=== PATIENT | male | born 1990 | race African-American/Black ===

== ENCOUNTER 2017-03-31 08:08 | Day surgery (SDC) | payer BC ==
[~2017-03-31 08:08] MED LIST: Bupivacaine 0.5% 30 ML SDV ONE
[2017-03-31] MEDS ORDERED: Propofol 200 MG/20 ML SDV ONE (08:18)
[2017-03-31] MEDS ORDERED: Lidocaine 2% 5 ML SDV ONE (08:18)
[2017-03-31] MEDS ORDERED: fentaNYL 250 MCG/5 ML SDV ONE (08:19)
[2017-03-31] MEDS ORDERED: Midazolam 1 MG/ML 2 ML SDV ONE (08:19)
[2017-03-31] MEDS ORDERED: Rocuronium 10 MG/ML 10 ML Syringe ONE (08:23)
[2017-03-31] MEDS ORDERED: Ondansetron 4 MG/2 ML SDV ONE (08:23)
[2017-03-31] MEDS ORDERED: Neostigmine Methylsulfate 1 MG/ML 5 ML Syringe ONE (08:23)
--- NOTE | 2017-03-31 08:35 | PCM.PREANE ---
Preanesthetic Assessment - Anesthesia/Transfusion/Family Hx Anesthesia History: No Prior Anesthesia Family History of Anesthesia Reaction: No Transfusion History: No Prior Transfusion(s) - Review of Systems General: No Symptoms Pulmonary: No Symptoms Cardiovascular: No Symptoms Gastrointestinal: No symptoms Neurological: No Symptoms Other: Reports: None - Physical Assessment NPO Status Date: 03/30/17 Height: 1.65 m Weight: 68.039 kg ASA Class: 1 Mental Status: Alert & Oriented x3 Airway Class: Mallampati = 1 Dentition: Reports: Normal Dentition ROM/Head Extension: Full Lungs: Clear to auscultation, Normal respiratory effort Cardiovascular: Regular Rate, Regular Rhythm - Allergies Allergies/Adverse Reactions: Allergies Allergy/AdvReac Type Severity Reaction Status Date / Time No Known Allergies Allergy Verified 10/30/15 11:36 - Anesthesia Plan Pre-Op Medication Ordered: None - Acknowledgements Anesthesia Type Planned: General Anesthesia (ETT if prone) Pt an Appropriate Candidate for the Planned Anesthesia: Yes Alternatives and Risks of Anesthesia Discussed w Pt/Guardian: Yes Pt/Guardian Understands and Agrees with Anesthesia Plan: Yes PreAnesthesia Questionnaire - Past Health History Medical/Surgical History: Denies Medical/Surgical History - Past Surgical History Head Surgeries/Procedures: Reports: None - SUBSTANCE USE Smoking Status *Q: Never Smoker Recreational Drug Use History: No - HOME MEDS Home Medications: Home Meds . [No Known Home Meds] 10/30/15 [History] - CURRENT (IN HOUSE) MEDS Current Meds: Current Medications Lactated Ringer's (Ringers, Lactated) 1,000 mls @ 125 mls/hr IV ASDIRECTED BREE Discontinued Medications Bupivacaine HCl (Marcaine 0.5%) Confirm Administered Dose 60 ml .ROUTE .STK-MED ONE Stop: 03/31/17 07:18 Fentanyl (Sublimaze) Confirm Administered Dose 250 mcg .ROUTE .STK-MED ONE Stop: 03/31/17 08:20 Glycopyrrolate () Confirm Administered Dose 1 mg .ROUTE .STK-MED ONE Stop: 03/31/17 08:24 Lidocaine (Xylocaine-Mpf 2%) Confirm Administered Dose 10 ml .ROUTE .STK-MED ONE Stop: 03/31/17 08:19 Midazolam HCl (Versed 1 Mg/Ml) Confirm Administered Dose 2 mg .ROUTE .STK-MED ONE Stop: 03/31/17 08:20 Neostigmine Methylsulfate (Neostigmine) Confirm Administered Dose 5 mg .ROUTE .STK-MED ONE Stop: 03/31/17 08:24 Ondansetron HCl (Zofran) Confirm Administered Dose 4 mg .ROUTE .STK-MED ONE Stop: 03/31/17 08:24 Propofol (Diprivan 20 Ml) Confirm Administered Dose 400 mg .ROUTE .STK-MED ONE Stop: 03/31/17 08:19 Rocuronium [place] (Zemuron) Confirm Administered Dose 100 mg .ROUTE .STK-MED ONE Stop: 03/31/17 08:24
[2017-03-31] MEDS ORDERED: Lactated Ringers 1,000 ML IV SCH ×3 (09:00→23:00)
[2017-03-31] MEDS ORDERED: Lidocaine 1% 20 ML MDV ONE (09:07)
[2017-03-31] MEDS ORDERED: Morphine 10 MG/ML Syringe IVPUSH PRN (10:12)
[2017-03-31] MEDS ORDERED: Acetaminophen/HYDROcodone 325-5 MG Tab PO PRN (10:12)
--- NOTE | 2017-03-31 10:14 | PCM.OPNOTE ---
- General Post-Op/Procedure Note Date of Surgery/Procedure: 03/31/17 Operative Procedure(s): Excision 5 cm x 10 cm mid back mass Pre Op Diagnosis: Enlarging back mass Post-Op Diagnosis: Same Anesthesia Technique: General ET tube (ASA I) Primary Surgeon: Ever Olivo Fluid Replacement, Intraop: 800 EBL in mLs: 5 Condition: Good Free Text/Narrative:: Dictation [id number]
[2017-03-31] MEDS ORDERED: fentaNYL 100 MCG/2 ML SDV IVPUSH PRN (10:29)
--- NOTE | 2017-03-31 11:17 | PCM.POSTAN ---
POST ANESTHESIA ASSESSMENT - MENTAL STATUS Mental Status: alert, oriented - RESPIRATORY Respiratory Status: respiratory rate WNL, airway patent, O2 saturation stable - CARDIOVASCULAR CV Status: pulse rate WNL, blood pressure stable - GASTROINTESTINAL GI Status: no symptoms - PAIN Pain Score: 0 - POST OP HYDRATION Hydration Status: adequate & stable
--- NOTE | 2017-03-31 11:33 | OR ---
SURGEON: Ever Olivo M.D. DATE OF PROCEDURE: 03/31/2017 OPERATION PERFORMED: Excision of 5 x 10 cm mid back mass. ANESTHESIA: General endotracheal. ASA CLASSIFICATION: I. PREOPERATIVE DIAGNOSIS: Symptomatic enlarging mid back mass. POSTOPERATIVE DIAGNOSIS: Symptomatic enlarging mid back mass. ESTIMATED BLOOD LOSS: 5 mL. FLUID REPLACEMENT: 800 mL of crystalloid. DESCRIPTION OF PROCEDURE: The patient was taken to the operating room, kept on the transfer cart in the supine position. Time-out was called for appropriate identification of the patient and procedure. Surgical site had been marked prior to the patient entering the operating room. Following induction of general endotracheal anesthesia, the patient was positioned on the operating table in the prone position. Care was taken to pad all bony prominences. The skin was then prepped with DuraPrep solution. Sterile drapes were applied. Field block anesthesia was accomplished with 10 mL of 0.5% Marcaine solution. The skin incision was made directly over the mass and deepened through the subcutaneous tissue obtaining hemostasis with the use of electrocautery. Using electrocautery, the mass was dissected away from the surrounding tissues. This did extend down to the prevertebral fascia. Once the mass was removed, bleeding sites were electrocoagulated. The incision was closed in 2 layers approximating the subcutaneous tissue with 3-0 Polysorb and the skin with subcuticular 4-0 Monocryl. Steri-Strips were placed on the skin and the incision was then dressed with a sterile Tegaderm pad. Sponge, needle, and instrument counts were all correct. The patient tolerated the procedure well. He was repositioned on the transfer cart to the supine position and following emergence from anesthesia and extubation, taken to recovery room in stable condition. DARNELL TAVERA /[id number]
--- NOTE | 2017-03-31 11:42 | PCM48HPAN ---
Post Anesthesia Note - EVALUATION WITHIN 48HRS OF ANESTHETIC Vital Signs in Normal Range: Yes Patient Participated in Evaluation: Yes Respiratory Function Stable: Yes Airway Patent: Yes Cardiovascular Function Stable: Yes Hydration Status Stable: Yes Pain Control Satisfactory: Yes Nausea and Vomiting Control Satisfactory: Yes Mental Status Recovered: Yes
[2017-03-31 14:07] VITALS: BP 108/64
== END 2017-03-31 12:45 | disposition home or self-care (01) ==
LOC: MW.SDS 08:08
PROVIDERS: ATTEND Surgery
PROC: 0JB70ZZ Excision of Back Subcutaneous Tissue and Fascia, Open Approach (ICD-10-PCS; principal; 2017-03-31)
DX: D17.1 Benign lipomatous neoplasm of skin and subcutaneous tissue of trunk (principal)
CPT/HCPCS: 00300; 88304; J2250; J2405; J2704; J3010; J7120

== ENCOUNTER 2019-06-08 15:10 | Emergency (ER) | payer BC ==
[2019-06-08] MEDS ORDERED: Morphine 4 MG/ML Syringe IVPUSH ONE (15:11)
[2019-06-08] MEDS ORDERED: Ondansetron 4 MG/2 ML SDV IVPUSH ONE (15:11)
[2019-06-08 15:17] VITALS: BP 136/63
[2019-06-08] MEDS ORDERED: HYDROmorphone 1 MG/ML Syringe IVPUSH ONE (15:17)
[2019-06-08] MEDS ORDERED: diazePAM 5 MG/ML MDV ONE (15:24)
[2019-06-08] MEDS ORDERED: HYDROmorphone 1 MG/ML Syringe ONE (15:25)
[2019-06-08] MEDS ORDERED: diazePAM 5 MG/ML MDV IV ONE (15:30)
--- NOTE | 2019-06-08 15:35 | EDM.PDOC ---
ED HPI GENERAL MEDICAL PROBLEM - General Chief Complaint: Upper Extremity Injury/Pain Stated Complaint: RIGHT SHOULDER Time Seen by Provider: 06/08/19 15:35 Source of Information: Reports: Patient - History of Present Illness INITIAL COMMENTS - FREE TEXT/NARRATIVE: HISTORY AND PHYSICAL: History of present illness: [Patient presents with dislocation of the right shoulder, he has had a previous dislocation past complains of 8 out of 10 pain with no obvious step-off No fever nausea vomiting chills sweats no other injury patient was reaching behind himself and the shoulder popped out there was no trauma Review of systems: As per history of present illness and below otherwise all systems reviewed and negative. Past medical history: As per history of present illness and as reviewed below otherwise noncontributory. Surgical history: As per history of present illness and as reviewed below otherwise noncontributory. Social history: No reported history of drug or alcohol abuse. Family history: As per history of present illness and as reviewed below otherwise noncontributory. Physical exam: HEENT: Atraumatic, normocephalic, pupils reactive, negative for conjunctival pallor or scleral icterus, mucous membranes moist, throat clear, neck supple, nontender, trachea midline. Lungs: Clear to auscultation, breath sounds equal bilaterally, chest nontender. Heart: S1S2, regular, negative for clicks, rubs, or JVD. Abdomen: Soft, nondistended, nontender. Negative for masses or hepatosplenomegaly. Negative for costovertebral tenderness. Pelvis: Stable nontender. Genitourinary: Deferred. Rectal: Deferred. Extremities: Atraumatic, negative for cords or calf pain. Neurovascular unremarkable. Neuro: Awake, alert, oriented. Cranial nerves II through XII unremarkable. Cerebellum unremarkable. Motor and sensory unremarkable throughout. Exam nonfocal. Diagnostics: [Right shoulder 1 view Postreduction films ] Therapeutics: [ Dilaudid 2 mg Valium 5 mg Induced with modified steels technique Entire limb neurovascularly intact no complication no complaint ]Follow-up with orthopedist Sling for comfort Impression: [ right shoulder dislocation with reduction ] Definitive disposition and diagnosis as appropriate pending reevaluation and review of above. Right Shoulder Pain Score (Numeric/FACES): 7 - Related Data Allergies Allergy/AdvReac Type Severity Reaction Status Date / Time No Known Allergies Allergy Verified 06/08/19 15:12 Home Meds: Home Meds . [No Known Home Meds] 10/30/15 [History] Past Medical History - Past Health History Medical/Surgical History: Denies Medical/Surgical History - Past Surgical History Head Surgeries/Procedures: Reports: None Social & Family History - Family History Family Medical History: Noncontributory - Tobacco Use Smoking Status *Q: Never Smoker Second Hand Smoke Exposure: No - Caffeine Use Caffeine Use: Reports: None - Recreational Drug Use Recreational Drug Use: No Review of Systems - Review of Systems Review Of Systems: See Below ED EXAM, GENERAL - Physical Exam Exam: See Below Course - Vital Signs Last Recorded V/S: Last Vital Signs Temp 97.6 F 06/08/19 15:12 Pulse 82 06/08/19 15:12 Resp 18 06/08/19 15:12 BP 136/63 06/08/19 15:12 Pulse Ox 95 06/08/19 15:12 - Orders/Labs/Meds Orders: Active Orders 24 hr Category Date Time Status Shoulder Comp Rt [CR] Stat Exams 06/08/19 15:11 Ordered Meds: Medications Discontinued Medications Generic Name Dose Route Start Last Admin Trade Name Chely PRN Reason Stop Dose Admin Diazepam Confirm 06/08/19 15:24 06/08/19 15:44 Valium Administered 06/08/19 15:25 Not Given Dose 5 mg .ROUTE .STK-MED ONE Diazepam 5 mg 06/08/19 15:30 06/08/19 15:41 Valium IV 06/08/19 15:31 5 mg ONETIME ONE Administration Hydromorphone HCl 2 mg 06/08/19 15:17 06/08/19 15:41 Dilaudid IVPUSH 06/08/19 15:18 2 mg ONETIME ONE Administration Hydromorphone HCl Confirm 06/08/19 15:25 06/08/19 15:44 Dilaudid Administered 06/08/19 15:26 Not Given Dose 1 mg .ROUTE .STK-MED ONE Morphine Sulfate 4 mg 06/08/19 15:11 06/08/19 15:44 Morphine IVPUSH 06/08/19 15:12 Not Given ONETIME ONE Ondansetron HCl 4 mg 06/08/19 15:11 06/08/19 15:40 Zofran IVPUSH 08/31/19 15:12 4 mg ONETIME ONE Administration Departure - Departure Time of Disposition: 15:52 Disposition: Home, Self-Care 01 Condition: Good Clinical Impression: Shoulder dislocation - Discharge Information Referrals: PCP,None [Primary Care Provider] - Forms: ED Department Discharge Additional Instructions: Rest ice ibuprofen Sling for comfort Return if symptoms persist or worsen Follow-up with orthopedist 2 weeks sooner as needed [facility] [address], [address] [place] [address] my orthopedic The following information is given to patients seen in the emergency department who are being discharged to home. This information is to outline your options for follow-up care. We provide all patients seen in our emergency department with a follow-up referral. The need for follow-up, as well as the timing and circumstances, are variable depending upon the specifics of your emergency department visit. If you don't have a primary care physician on staff, we will provide you with a referral. We always advise you to contact your personal physician following an emergency department visit to inform them of the circumstance of the visit and for follow-up with them and/or the need for any referrals to a consulting specialist. The emergency department will also refer you to a specialist when appropriate. This referral assures that you have the opportunity for follow-up care with a specialist. All of these measure are taken in an effort to provide you with optimal care, which includes your follow-up. Under all circumstances we always encourage you to contact your private physician who remains a resource for coordinating your care. When calling for follow-up care, please make the office aware that this follow-up is from your recent emergency room visit. If for any reason you are refused follow-up, please contact the [facility] emergency department at and asked to speak to the emergency department charge nurse.
--- NOTE | 2019-06-08 16:08 | CR ---
HISTORY: Shoulder pain after injury. FINDINGS: Single AP view of the shoulder is provided. There is apparent dislocation of the shoulder joint with the humeral head presumably anteroinferior to the glenoid. No findings for fracture. Dictated by Rob Domínguez MD @ Jun 08 2019 4:07PM Signed by Dr. Rob Domínguez @ Jun 08 2019 4:07PM
--- NOTE | 2019-06-08 16:47 | CR ---
INDICATION: Postreduction. TECHNIQUE: Two views right shoulder. FINDINGS: The anterior inferior medial dislocation of the right humeral head with regard to the glenoid has been reduced since the prior exam. No evidence for dislocation or fracture involving the humeral head on the current image. There is superior displacement of the right lateral clavicle with regard to the chromium which is stable with the right lateral clavicle being displaced superiorly by 7-8 mm with regard to the acromion. The right AC joint is upper limits normal to mildly widened. This is likely posttraumatic. Remainder negative. Dictated by Bebeto Pappas MD @ Jun 08 2019 4:42PM Signed by Dr. Bebeto Pappas @ Jun 08 2019 4:45PM
== END 2019-06-08 16:38 | disposition home or self-care (01) ==
LOC: MW.ED 15:10
DX: S43.004A Unspecified dislocation of right shoulder joint, initial encounter (principal); X50.9XXA Other and unspecified overexertion or strenuous movements or postures, initial encounter
CPT/HCPCS: 23650; 73020; 73030; 96374; 96375; 99283; J1170; J2405; J3360; 99282